=== PATIENT | male | born 1950 | race Caucasian/White ===

== ENCOUNTER 2017-09-14 08:54 | Day surgery (SDC) | payer OTHER ==
[~2017-09-14 08:54] MED LIST: Acetaminophen TAB* 325 MG PO PRN; Buffered Lidocaine 0.9% SYRIN* 5 ML/SYR SYRINGE INTRADERM ONE; Cyclopentolate 1% OPTH.SOL* 2 ML BTL ONE; Ketorolac 0.5% OPHTH (NF) 0.5 % 5 ML BTL ONE; Lidocaine 1% MPF* 2 ML VIAL ONE; Neomycin/Polymy/Dex OPHTH.OIN* 3.5 GM ONE; Phenylephr/Ketorolac 1%/0.3% OPH DROP BTL ONE; Phenylephrine 2.5% OPTH.SOL* 2 ML BTL ONE; Tetracaine 0.5% OPTH.SOL 4 ML* 1 DROP BTL ONE; Tropicamide 1% OPTH.SOL* BTL ONE
[2017-09-14] MEDS ORDERED: Midazolam* 1 MG/ML 2 ML VIAL (2 MG) ONE ×2 (10:19→10:30)
[2017-09-14] MEDS ORDERED: fentaNYL* 50 MCG/ML 2 ML VIAL (100 MCG VIAL) ONE (10:20)
[2017-09-14 10:51] VITALS: BP 113/69
--- NOTE | 2017-09-14 13:23 | OP ---
DATE OF OPERATION/DATE OF DICTATION: 09/14/2017 - [facility] DATE OF : 1950. SURGEON: Dr. Tim Alvarenga. EXPLOSIVES DETONATOR: None. ANESTHESIA: Topical with intravenous sedation. PRE-OP DIAGNOSIS: Cataract, left eye. POST-OP DIAGNOSIS: Cataract, left eye. OPERATIVE PROCEDURE: Phacoemulsification and cataract extraction with posterior chamber intraocular lens implant, left eye. COMPLICATIONS: None. BLOOD LOSS: None. DESCRIPTION OF PROCEDURE: The patient was brought to the operating room and received a small amount of intra-venous sedation. A drop of Tetracaine was placed in his left eye. He was prepped and draped in the usual sterile fashion for ophthalmic surgery and attention was directed to the left eye where a speculum was placed. A paracentesis was created at the 5 o'clock position and 0.1 cc of 1 percent preservative-free Lidocaine was injected into the anterior chamber followed by DisCoVisc. The eye was digitally stabilized while a 2.75 mm keratome was used to create a triplanar clear corneal incision at the 3 o'clock position. A continuous curvilinear capsulorrhexis was created with a cystotome and Utrata forceps. BSS on a cannula was used to hydrodissect the lens from the capsule. Phacoemulsification was performed in a [id number] technique to create four fragments which were removed. Residual cortical material was removed with irrigation and aspiration. DisCoVisc was used to inflate the capsular bag and an AUOOTO 17.0 diopter lens was folded and inserted into the capsular bag. DisCoVisc was removed using irrigation and aspiration. BSS on a cannula was used to hydrate the corneal stroma and seal the wound. At the end of the case the pupil was round and the lens was centered. The eye was of normal pressure and the wound was water tight. The speculum was removed and topical Maxitrol ointment was placed on the surface of the eye. The eye was closed, patched and shielded and the patient was sent to the recovery room in stable condition with post operative instructions and follow-up appointment given. [id number]/CPS #: [id number] MTDD
== END 2017-09-14 11:04 | disposition home or self-care (01) ==
LOC: OREAST 08:54
PROVIDERS: ATTEND Ophthalmology
DX: H25.12 Age-related nuclear cataract, left eye (principal); E03.9 Hypothyroidism, unspecified; J45.909 Unspecified asthma, uncomplicated; E78.00 Pure hypercholesterolemia, unspecified; E78.2 Mixed hyperlipidemia
CPT/HCPCS: A9270-GY; C9447; J2250; J3010; V2632

== ENCOUNTER 2018-02-22 20:26 | Emergency (ER) | payer OTHER ==
--- OUTSIDE RECORDS SUMMARY | 2018-02-22 20:35 | XMS REPORT ---
:1950 External Reference #:[id number] Author Organization [employer] Address [address] [address] Phone [phone] Care Team Providers Name Role Phone Josie Ordaz MD Primary Care Physician Unavailable Payers Type Date Identification Numbers Payment Provider Subscriber Commercial Policy Number: [id number] [employer] Keyanna Chavezsharmaine PayID: [id number] [address] [place] [address] Medigap Part B Expires: 2017 Policy Number: [employer] Hermes Roland [id number] Group Number: [id number] [address] Group Name: [place] [address] PayID: [id number] Problems Date Description Provider Status Onset: 07/10/2010 Hyperlipidemia Josie Ordaz M.D. Active Onset: 11/08/2012 Hypothyroidism Josie Ordaz M.D. Active Onset: 08/31/2017 Mixed hyperlipidemia Jim Mays M.D. 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[employer], retired Cigarette Use Never Smoked Cigarettes ETOH Use Drinks 4 Alcoholic Beverages Per Week Smoking Patient has never smoked Exercise Type/Frequency Walks daily 30 min elliptical and or walking Allergies, Adverse Reactions, Alerts Date Description Reaction Status Severity Comments 06/28/2010 Sulfa intolerant active mild per pt 06/28/2010 Tetracycline active pt stated mild 07/09/2010 Bactrim active pt stated mild Medications Medication Date Status Form Strength Qnty SIG Indications Ordering Provider Levothyroxine Active Tablets 125mcg 90tabs Take 1 Josie Sodium 014 tablet by Cotton, mouth M.D. daily Simvastatin Active Tablets 40mg 90tabs Take 1 E78.5 Josie 011 Tablet By Cotton, Mouth AT M.D. Bedtime Levoxyl Hx Tablets 125mcg 90tabs take 1 Josie 011 - tablet Cotton, daily M.D. 014 Simvastatin Hx Tablets 20mg 90tabs 1 tablet 272.4 Josie 010 - once Cotton, daily at M.D. 011 bedtime Levothyroxine Hx Tablets 125mcg 90tabs 1 by Josie Sodium 010 - mouth Cotton, once M.D. 011 daily Lipitor Hx Tablets 20mg 45tabs 09/07 272.4 Josie 010 - tablet by Cotton, mouth M.D. 010 once daily Levoxyl Hx Tablets 125mcg 90tabs 1 by Josie 010 - mouth Cotton, once M.D. 010 daily [facility] 0000/0 Hx 1 po qd Unknown 000 - 013 Immunizations CPT Code Status Date Vaccine Lot # [id number] Given 06/07/2017 Tetanus And Diptheria (Td) For Adult Use [id number] Preservative Free 86165 Given 06/07/2017 Influenza Virus Vaccine, Quadrivalent, Split, [id number] Preservative Free 82664 Given 06/04/2016 Pneumonia Vaccine [id number] 98404 Given 05/21/2015 Pneumococcal Conjugate Vaccine 13 Valent For [id number] Intramuscular Use 49829 Given 02/26/2012 Zoster (Zostavax) [id number] 78246 Given 07/10/2010 Influenza Virus 3Yrs & Over 08308 Given 06/26/2008 Influenza Virus 3Yrs & Over 09103 Given 06/26/2008 Influenza Virus 3Yrs & Over 42495 Given 03/29/2007 Tdap - Tetanus/Diptheria/Acellular Pertussis 14362 Given 03/29/2007 Tdap - Tetanus/Diptheria/Acellular Pertussis Vital Signs Date Vital Result Comment 02/09/2018 Height 69.75 inches 5'9.75" Weight 195.25 lb Heart Rate 56 /min BP Systolic 119 mmHg BP Diastolic 68 mmHg Body Temperature 96.0 F O2 % BldC Oximetry 98 % BMI (Body Mass Index) 28.2 kg/m2 08/31/2017 Weight 201.25 lb Heart Rate 60 /min BP Systolic Sitting 132 mmHg BP Diastolic Sitting 80 mmHg Body Temperature 95.7 F O2 % BldC Oximetry 98 % 06/07/2017 Height 69.5 inches 5'9.50" Weight 196.50 lb Heart Rate 71 /min BP Systolic 120 mmHg BP Diastolic 66 mmHg Body Temperature 97.5 F O2 % BldC Oximetry 99 % BMI (Body Mass Index) 28.6 kg/m2 06/04/2016 Height 69.5 inches 5'9.50" Weight 183.00 lb Heart Rate 74 /min BP Systolic 119 mmHg BP Diastolic 70 mmHg Body Temperature 98.0 F O2 % BldC Oximetry 98 % BMI (Body Mass Index) 26.6 kg/m2 07/09/2015 Weight 187.50 lb Heart Rate 68 /min BP Systolic Sitting 119 mmHg BP Diastolic Sitting 72 mmHg Body Temperature 97.5 F O2 % BldC Oximetry 98 % 05/21/2015 Height 69.5 inches 5'9.50" Weight 185.00 lb Heart Rate 83 /min BP Systolic Sitting 132 mmHg BP Diastolic Sitting 78 mmHg BMI (Body Mass Index) 26.9 kg/m2 05/15/2014 Height 70.25 inches 5'10.25" Weight 198.00 lb Heart Rate 68 /min BP Systolic Sitting 116 mmHg BP Diastolic Sitting 70 mmHg Body Temperature 97.8 F BMI (Body Mass Index) 28.2 kg/m2 05/09/2013 Height 70.25 inches 5'10.25" Weight 193.25 lb Heart Rate 70 /min BP Systolic Sitting 120 mmHg BP Diastolic Sitting 76 mmHg BMI (Body Mass Index) 27.5 kg/m2 11/08/2012 Height 70.5 inches 5'10.50" Weight 197.00 lb Heart Rate 76 /min BP Systolic Sitting 110 mmHg BP Diastolic Sitting 78 mmHg BMI (Body Mass Index) 27.9 kg/m2 02/26/2012 Height 70 inches 5'10" Weight 195.00 lb Heart Rate 70 /min BP Systolic Sitting 126 mmHg BP Diastolic Sitting 74 mmHg BMI (Body Mass Index) 28.0 kg/m2 02/22/2012 Height 70 inches 5'10" Weight 195.00 lb Heart Rate 72 /min BP Systolic Sitting 128 mmHg BP Diastolic Sitting 74 mmHg BMI (Body Mass Index) 28.0 kg/m2 01/13/2011 Height 70 inches 5'10" Weight 194.75 lb Heart Rate 68 /min BP Systolic 106 mmHg BP Diastolic 68 mmHg BMI (Body Mass Index) 27.9 kg/m2 07/10/2010 Weight 197.50 lb Heart Rate 72 /min BP Systolic 112 mmHg BP Diastolic 68 mmHg Results Test Date Test Result H/L Range Note Lipid Profile (Trig/Chol/HDL) 06/02/2017 Triglycerides 89 mg/dL 1 Cholesterol 167 mg/dL 2 HDL Cholesterol 41.6 mg/dL 3 LDL Cholesterol 108 mg/dL 4 Comp Metabolic Panel 06/02/2017 Sodium 140 mmol/L 133-145 Potassium 4.2 mmol/L 3.5-5.0 Chloride 108 mmol/L 101-111 Co2 Carbon Dioxide 26 mmol/L 22-32 Anion Gap 6 mmol/L 2-11 Glucose 100 mg/dL 70-100 Blood Urea Nitrogen 21 mg/dL 6-24 Creatinine 1.01 mg/dL 0.67-1.17 BUN/Creatinine Ratio 20.8 High 8-20 Calcium 8.9 mg/dL 8.6-10.3 Total Protein 6.6 g/dL 6.4-8.9 Albumin 4.1 g/dL 3.2-5.2 Globulin 2.5 g/dL 2-4 Albumin/Globulin Ratio 1.6 1-3 Total Bilirubin 0.70 mg/dL 0.2-1.0 Alkaline Phosphatase 50 U/L 34-104 Alt 27 U/L 7-52 Ast 25 U/L 13-39 Egfr Non- 73.7 >60 Egfr 94.8 >60 5 Laboratory test finding 06/02/2017 TSH (Thyroid Stim Horm) 1.00 mcIU/mL 0.34-5.60 6 PSA Screening 0.631 ng/mL 0-4.000 7 Lipid Profile (Trig/Chol/HDL) 05/28/2016 Triglycerides 133 mg/dL 8 Cholesterol 172 mg/dL 9 HDL Cholesterol 39.3 mg/dL 10 LDL Cholesterol 106 mg/dL 11 Comp Metabolic Panel 05/28/2016 Sodium 139 mmol/L 133-145 Potassium 4.2 mmol/L 3.5-5.0 Chloride 103 mmol/L 101-111 Co2 Carbon Dioxide 30 mmol/L 22-32 Anion Gap 6 mmol/L 2-11 Glucose 90 mg/dL 70-100 Blood Urea Nitrogen 21 mg/dL 6-24 Creatinine 1.06 mg/dL 0.67-1.17 BUN/Creatinine Ratio 19.8 8-20 Calcium 9.4 mg/dL 8.6-10.3 Total Protein 6.7 g/dL 6.4-8.9 Albumin 4.2 g/dL 3.2-5.2 Globulin 2.5 g/dL 2-4 Albumin/Globulin Ratio 1.7 1-3 Total Bilirubin 0.90 mg/dL 0.2-1.0 Alkaline Phosphatase 57 U/L 34-104 Alt 19 U/L 7-52 Ast 21 U/L 13-39 Egfr Non- 69.9 >60 Egfr 89.9 >60 12 Laboratory test finding 05/28/2016 TSH (Thyroid Stim Horm) 0.66 mcIU/mL 0.34-5.60 PSA Screening 0.616 ng/mL 0-4.0 Lipid Profile (Trig/Chol/HDL) 05/16/2015 Triglycerides 126 mg/dL 13 Cholesterol 188 mg/dL 14 HDL Cholesterol 44.4 mg/dL 15 LDL Cholesterol 118 mg/dL 16 Laboratory test finding 05/16/2015 TSH (Thyroid Stim Horm) 1.94 ?IU/mL 0.34-5.60 Comp Metabolic Panel 05/16/2015 Sodium 139 mmol/L 133-145 Potassium 4.1 mmol/L 3.5-5.0 Chloride 105 mmol/L 101-111 Co2 Carbon Dioxide 26 mmol/L 22-32 Anion Gap 8 mmol/L 2-11 Glucose 101 mg/dL High 70-100 Blood Urea Nitrogen 18 mg/dL 6-24 Creatinine 1.09 mg/dL 0.67-1.17 BUN/Creatinine Ratio 16.5 8-20 Calcium 9.3 mg/dL 8.6-10.3 Total Protein 6.7 g/dL 6.4-8.9 Albumin 4.4 g/dL 3.2-5.2 Globulin 2.3 g/dL 2-4 Albumin/Globulin Ratio 1.9 1-3 Total Bilirubin 0.70 mg/dL 0.2-1.0 Alkaline Phosphatase 55 U/L 34-104 Alt 21 U/L 7-52 Ast 21 U/L 13-39 Egfr Non- 67.9 >60 Egfr 87.3 >60 17 Laboratory test finding 05/16/2015 PSA Diagnostic 0.630 ng/mL 0-4.0 Laboratory test finding 05/29/2014 PSA Diagnostic 0.867 ng/mL 0-4.0 18 Creatinine 05/29/2014 Creatinine 1.11 mg/dL 0.67-1.17 Egfr Non- 66.7 >60 Egfr 85.8 >60 19 Laboratory test finding 05/29/2014 Blood Urea Nitrogen 22 mg/dL 6-24 Lipid Profile (Trig/Chol/HDL) 05/15/2014 Triglycerides 236 mg/dL 20, 21 Cholesterol 191 mg/dL 20, 22 HDL Cholesterol 36.9 mg/dL 20, 23 LDL Cholesterol 107 mg/dL 20, 24 Comp Metabolic Panel 05/15/2014 Sodium 138 mmol/L 133-145 20 Potassium 4.1 mmol/L 3.5-5.0 20 Chloride 103 mmol/L 101-111 20 Co2 Carbon Dioxide 31 mmol/L 22-32 20 Anion Gap 4 mmol/L 2-11 20 Glucose 89 mg/dL 70-100 20 Blood Urea Nitrogen 15 mg/dL 6-24 20 Creatinine 1.07 mg/dL 0.67-1.17 20 BUN/Creatinine Ratio 14.0 8-20 20 Calcium 9.3 mg/dL 8.6-10.3 20 Total Protein 6.6 g/dL 6.4-8.9 20 Albumin 4.3 g/dL 3.2-5.2 20 Globulin 2.3 g/dL 2-4 20 Albumin/Globulin Ratio 1.9 1-3 20 Total Bilirubin 0.80 mg/dL 0.2-1.0 20 Alkaline Phosphatase 58 U/L 34-104 20 Alt 18 U/L 7-52 20 Ast 19 U/L 13-39 20 Egfr Non- 69.6 >60 20 Egfr 89.5 >60 20, 25 Laboratory test 05/15/2014 TSH (Thyroid 1.68 IU/mL 0.34-5.60 20, 26 finding Stimulating Horm) Laboratory test 01/11/2014 TSH (Thyroid 0.67 IU/mL 0.34-5.60 27, 28 finding Stimulating Horm) Lipid Profile 01/11/2014 Triglycerides 140 mg/dL 27, 29 (Trig/Chol/HDL) Cholesterol 179 mg/dL 27, 30 HDL Cholesterol 37.6 mg/dL 27, 31 LDL Cholesterol 113 mg/dL 27, 32 Comp Metabolic Panel 01/11/2014 Sodium 139 mmol/L 133-145 27 Potassium 4.7 mmol/L 3.7-5.6 27 Chloride 103 mmol/L 101-111 27 Co2 Carbon Dioxide 31 mmol/L 22-32 27 Anion Gap 5 mmol/L 2-11 27 Glucose 89 mg/dL 70-100 27 Blood Urea Nitrogen 21 mg/dL 6-24 27 Creatinine 1.11 mg/dL 0.67-1.17 27 BUN/Creatinine Ratio 18.9 8-20 27 Calcium 9.3 mg/dL 8.6-10.3 27 Total Protein 6.9 g/dL 6.4-8.9 27 Albumin 4.6 g/dL 3.2-5.2 27 Globulin 2.3 g/dL 2-4 27 Albumin/Globulin Ratio 2.0 1-3 27 Total Bilirubin 0.60 mg/dL 0.2-1.0 27 Alkaline Phosphatase 69 U/L 34-104 27 Alt 25 U/L 7-52 27 Ast 20 U/L 13-39 27 Egfr Non- 66.9 >60 27 Egfr 86.0 >60 27, 33 Laboratory test 01/11/2014 Hepatitis C Nonreactive Nonreactive 27, 34 finding Antibody Comp Metabolic Panel 11/09/2012 Sodium 140 mmol/L 133-145 Potassium 4.3 mmol/L 3.5-5.0 Chloride 104 mmol/L 101-111 Co2 Carbon Dioxide 29.0 mmol/L 22-32 Anion Gap 7.0 mmol/L 2-11 Glucose 88 mg/dL 70-100 Blood Urea Nitrogen 17 mg/dL 6-24 Creatinine 1.20 mg/dL 0.50-1.40 BUN/Creatinine Ratio 14.2 8-20 Calcium 9.2 mg/dL 8.1-9.9 Total Protein 6.5 g/dL 6.2-8.1 Albumin 4.1 g/dL 3.2-5.2 Globulin 2.4 g/dL 2-4 Albumin/Globulin Ratio 1.7 1-3 Total Bilirubin 1.0 mg/dL 0.4-1.5 Alkaline Phosphatase 64 U/L 30-110 Alt 26 U/L 14-54 Ast 23 U/L 12-42 Egfr Non- 61.3 >60 Egfr 78.9 >60 35 Lipid Profile (Trig/Chol/HDL) 11/09/2012 Triglycerides 150 mg/dL 40-200 Cholesterol 195 mg/dL Less than 200 HDL Cholesterol 39 mg/dL Low 40-60 36 Cholesterol/HDL Ratio 5.0 Average High 1-4.44 LDL Cholesterol 126.0 mg/dL High Less Than 100 37 Laboratory test finding 11/09/2012 TSH (Thyroid Stimulating 2.24 miu/mL 0.34-5.60 38 Horm) Urinalysis 04/21/2012 Ua Color YELLOW Yellow Appearance-Urine CLEAR Clear Specific [place]-Ur 1.020 1.010-1.030 Esterase-Urine NEGATIVE Negative Nitrite NEGATIVE Negative [id number] NEGATIVE Negative Protein-Urine NEGATIVE Negative PH-Urine 5.0 5-9 Blood-Urine NEGATIVE Negative Ketones-Urine NEGATIVE Negative Bilirubin-Ur NEGATIVE Negative Glucose-Urine NEGATIVE Negative Urine Culture & 02/26/2012 M <SEE 39 Sensitivi NOTE> Laboratory test finding 02/22/2012 TSH 0.94 MIU/ML 0.34-5.60 CMP Panel 02/22/2012 Sodium 137 mmol/L 135-145 Potassium 4.2 mmol/L 3.5-5.0 Chloride 105 mmol/L 101-111 Co2 (Carbon Dioxide) 29.0 mmol/L 22-32 Anion Gap 3.0 mmol/L 2-11 40 Glucose 100 mg/dL 70-100 BUN 18 mg/dL 6-24 Creatinine 1.1 mg/dL 0.50-1.40 One Over Creatinine 0.90 BUN/Creatinine Ratio 16.4 8-20 Calcium 9.2 mg/dL 8.1-9.9 Total Protein 6.8 GM/DL 6.2-8.1 Albumin 4.1 GM/DL 3.2-5.2 Globulin 2.7 GM/DL 2-4 Albumin/Globulin Ratio 1.5 1-3 Bilirubin Total 1.1 mg/dL 0.4-1.5 41 Alkaline Phosphatase 52 U/L 39-117 Alt (SGPT) 24 U/L 17-63 Ast (Sgot) 24 U/L 12-42 eGFR Non- 68.1 > 60 eGFR 87.5 > 60 42 Lipid Panel 02/22/2012 Triglyceride 171 mg/dL 40-200 Cholesterol 176 mg/dL Less Than 200 43 High Density Lipoprotein 47 mg/dL 40-60 44 Cholesterol/HDL Ratio 3.74 AVERAGE 1-4.97 Low Density Lipoprotein 95 mg/dL Less Than 100 45 Laboratory test finding 05/05/2011 Alt (SGPT) 36 U/L 17-63 Ast (Sgot) 29 U/L 12-42 TSH 1.87 MIU/ML 0.34-5.60 Varicella Zoster Igg Negative Negative 46 Lipid Profile (Trig/Chol/HDL) 05/05/2011 Triglyceride 157 mg/dL 40-200 Cholesterol 222 mg/dL High Less Than 200 47 High Density Lipoprotein 43 mg/dL 40-60 48 Cholesterol/HDL Ratio 5.16 AVERAGE High 1-4.97 Low Density Lipoprotein 148 mg/dL High Less Than 100 49 Lipid Profile (Trig/Chol/HDL) 01/06/2011 Triglyceride 185 mg/dL 40-200 Cholesterol 206 mg/dL High Less Than 200 50 High Density Lipoprotein 41 mg/dL 40-60 51 Cholesterol/HDL Ratio 5.02 AVERAGE High 1-4.97 Low Density Lipoprotein 128 mg/dL High Less Than 100 52 Laboratory test finding 01/06/2011 Alt (SGPT) 32 U/L 17-63 Ast (Sgot) 26 U/L 12-42 PSA Screening 0.48 NG/ML 0-4 53 Comp Metabolic Panel 06/26/2010 Sodium 132 mmol/L Low 135-145 Potassium 4.1 mmol/L 3.5-5.0 Chloride 99 mmol/L Low 101-111 Co2 (Carbon Dioxide) 29.0 mmol/L 22-32 Anion Gap 4.0 mmol/L 2-11 54 Glucose 91 mg/dL 70-100 55 BUN 18 mg/dL 6-24 Creatinine 0.90 mg/dL 0.50-1.40 One Over Creatinine 1.10 BUN/Creatinine Ratio 20.0 8-20 Calcium 8.9 mg/dL 8.1-9.9 Total Protein 7.0 GM/DL 6.2-8.1 Albumin 4.3 GM/DL 3.2-5.2 Globulin 2.7 GM/DL 2-4 Albumin/Globulin Ratio 1.6 1-3 Bilirubin Total 1.0 mg/dL 0.4-1.5 56 Alkaline Phosphatase 59 U/L 39-117 Alt (SGPT) 35 U/L 17-63 Ast (Sgot) 31 U/L 12-42 eGFR Non- 91.5 > 60 eGFR 110.7 > 60 57 Lipid Profile (Trig/Chol/HDL) 06/26/2010 Triglyceride 236 mg/dL High 40- 200 Cholesterol 207 mg/dL High Less Than 200 58 High Density Lipoprotein 39 mg/dL Low 40-60 59 Cholesterol/HDL Ratio 5.31 AVERAGE High 1-4.97 Low Density Lipoprotein 121 mg/dL High Less Than 100 60 Laboratory test finding 06/26/2010 TSH 0.67 MIU/ML 0.34-5.60 1 Desirable <150 Borderline high 150-199 High 200-499 Very High >500 2 Desirable <200 Borderline high 200-239 High >239 3 Low <40 Desirable: 40-60 High: >60 4 Desirable: <100 mg/dL Near Optimal: 100-129 mg/dL Borderline High: 130-159 mg/dL High: 160-189 mg/dL Very High: >189 mg/dL 5 Because ethnic data is not always readily available, this report includes an eGFR for both -Americans and non- Americans. The National Kidney Disease Education Program (NKDEP) does not endorse the use of the MDRD equation for patients that are not between the ages of 18 and 70, are , have extremes of body size, muscle mass, or nutritional status, or are non- or non-. According to the National Kidney Foundation, irrespective of diagnosis, the stage of the disease is based on the level of kidney function: Stage Description GFR(mL/min/1.73 m(2)) 1 Kidney damage with normal or decreased GFR 90 2 Kidney damage with mild decrease in GFR 60-89 3 Moderate decrease in GFR 30-59 4 Severe decrease in GFR 15-29 5 Kidney failure <15 (or dialysis) 6 FASTING 10 HOUR 7 FASTING 10 HOUR 8 Desirable <150 Borderline high 150-199 High 200-499 Very High >500 9 Desirable <200 Borderline high 200-239 High >239 10 Low <40 Desirable: 40-60 High: >60 11 Desirable: <100 mg/dL Near Optimal: 100-129 mg/dL Borderline High: 130-159 mg/dL High: 160-189 mg/dL Very High: >189 mg/dL 12 Because ethnic data is not always readily available, this report includes an eGFR for both -Americans and non- Americans. The National Kidney Disease Education Program (NKDEP) does not endorse the use of the MDRD equation for patients that are not between the ages of 18 and 70, are , have extremes of body size, muscle mass, or nutritional status, or are non- or non-. According to the National Kidney Foundation, irrespective of diagnosis, the stage of the disease is based on the level of kidney function: Stage Description GFR(mL/min/1.73 m(2)) 1 Kidney damage with normal or decreased GFR 90 2 Kidney damage with mild decrease in GFR 60-89 3 Moderate decrease in GFR 30-59 4 Severe decrease in GFR 15-29 5 Kidney failure <15 (or dialysis) 13 Desirable <150 Borderline high 150-199 High 200-499 Very High >500 14 Desirable <200 Borderline high 200-239 High >239 15 Low <40 Desirable: 40-60 High: >60 16 Desirable: <100 mg/dL Near Optimal: 100-129 mg/dL Borderline High: 130-159 mg/dL High: 160-189 mg/dL Very High: >189 mg/dL 17 Because ethnic data is not always readily available, this report includes an eGFR for both -Americans and non- Americans. The National Kidney Disease Education Program (NKDEP) does not endorse the use of the MDRD equation for patients that are not between the ages of 18 and 70, are , have extremes of body size, muscle mass, or nutritional status, or are non- or non-. According to the National Kidney Foundation, irrespective of diagnosis, the stage of the disease is based on the level of kidney function: Stage Description GFR(mL/min/1.73 m(2)) 1 Kidney damage with normal or decreased GFR 90 2 Kidney damage with mild decrease in GFR 60-89 3 Moderate decrease in GFR 30-59 4 Severe decrease in GFR 15-29 5 Kidney failure <15 (or dialysis) 18 Serum levels of PSA measured using the [employer] DXI Hybritech immunoassay should not be interpreted as absolute evidence of the presence or absence of disease. The PSA value should be used in conjunction with other pertinent clinical diagnostic procedures. The values obtained with different assay methods or kits cannot be used interchangeably. 19 Because ethnic data is not always readily available, this report includes an eGFR for both -Americans and non- Americans. The National Kidney Disease Education Program (NKDEP) does not endorse the use of the MDRD equation for patients that are not between the ages of 18 and 70, are , have extremes of body size, muscle mass, or nutritional status, or are non- or non-. According to the National Kidney Foundation, irrespective of diagnosis, the stage of the disease is based on the level of kidney function: Stage Description GFR(mL/min/1.73 m(2)) 1 Kidney damage with normal or decreased GFR 90 2 Kidney damage with mild decrease in GFR 60-89 3 Moderate decrease in GFR 30-59 4 Severe decrease in GFR 15-29 5 Kidney failure <15 (or dialysis) 20 PT IS FASTING 21 Desirable <150 Borderline high 150-199 High 200-499 Very High >500 22 Desirable <200 Borderline high 200-239 High >239 23 Low <40 Desirable: 40-60 High: >60 24 Desirable: <100 mg/dL Near Optimal: 100-129 mg/dL Borderline High: 130-159 mg/dL High: 160-189 mg/dL Very High: >189 mg/dL 25 Because ethnic data is not always readily available, this report includes an eGFR for both -Americans and non- Americans. The National Kidney Disease Education Program (NKDEP) does not endorse the use of the MDRD equation for patients that are not between the ages of 18 and 70, are , have extremes of body size, muscle mass, or nutritional status, or are non- or non-. According to the National Kidney Foundation, irrespective of diagnosis, the stage of the disease is based on the level of kidney function: Stage Description GFR(mL/min/1.73 m(2)) 1 Kidney damage with normal or decreased GFR 90 2 Kidney damage with mild decrease in GFR 60-89 3 Moderate decrease in GFR 30-59 4 Severe decrease in GFR 15-29 5 Kidney failure <15 (or dialysis) 26 PT IS FASTING 27 FASTING 12 HOUR 28 FASTING 12 HOUR 29 Desirable <150 Borderline high 150-199 High 200-499 Very High >500 30 Desirable <200 Borderline high 200-239 High >239 31 Low <40 Desirable: 40-60 High: >60 32 Desirable <100 Near Optimal 100-129 Borderline high 130-159 High 160-189 Very High >189 33 Because ethnic data is not always readily available, this report includes an eGFR for both -Americans and non- Americans. The National Kidney Disease Education Program (NKDEP) does not endorse the use of the MDRD equation for patients that are not between the ages of 18 and 70, are , have extremes of body size, muscle mass, or nutritional status, or are non- or non-. According to the National Kidney Foundation, irrespective of diagnosis, the stage of the disease is based on the level of kidney function: Stage Description GFR(mL/min/1.73 m(2)) 1 Kidney damage with normal or decreased GFR 90 2 Kidney damage with mild decrease in GFR 60-89 3 Moderate decrease in GFR 30-59 4 Severe decrease in GFR 15-29 5 Kidney failure <15 (or dialysis) 34 FASTING 12 HOUR 35 Because ethnic data is not always readily available, this report includes an eGFR for both -Americans and non- Americans. The National Kidney Disease Education Program (NKDEP) does not endorse the use of the MDRD equation for patients that are not between the ages of 18 and 70, are , have extremes of body size, muscle mass, or nutritional status, or are non- or non-. According to the National Kidney Foundation, irrespective of diagnosis, the stage of the disease is based on the level of kidney function: Stage Description GFR(mL/min/1.73 m(2)) 1 Kidney damage with normal or decreased GFR 90 2 Kidney damage with mild decrease in GFR 60-89 3 Moderate decrease in GFR 30-59 4 Severe decrease in GFR 15-29 5 Kidney failure <15 (or dialysis) 36 HDL Interpretation: Undesirable: High Risk: Less than 40 MG/DL Desirable: Low Risk: Greater than 60 MG/DL 37 LDL Interpretation: Low Risk Optimal Level: LDL Less than 100 MG/DL Near or Above Optimal: LDL 100-129 MG/DL Borderline High Risk: LDL 130-159 MG/DL High Risk: LDL 160-189 MG/DL Very High Risk: LDL Greater than 189 MG/DL 38 FASTING 12 HOUR 39 RUN DATE: 02/28/12 [facility] NMI LIVE PAGE 1 RUN TIME: 850 Specimen Inquiry RUN USER: INTERFACE Name: HERMES ROLAND Status: REG REF Re02/26/12 Age/Sex: 61/M Unit#: [id number] Location: [facility] : 50 SPEC #: [id number] JOSUE: 02/26/12 STATUS: LETICIA REQ #: [id number] RECD: 02/26/[address] [facility] [address]: Orlin CHRIS,Josie Aguilar SOURCE: URINE ENTR: 02/26/[address]: [facility]: ORDERED: URINE C S QUERIES: MEDENT REQUISITION # [id number] SPECIMEN DESCRIPTION: URINE, CLEAN CATCH ACT WKST: UR 02/28/12 #1 Procedure Result Verified Site > URINE CULTURE SENSITIVI Final -0851 ML FINAL: NO GROWTH DAY 2 (<1,000 CFU/mL) ML - [facility] State Permit #[id number] [address] [place] [id number] DEPARTMENT OF PATHOLOGY, [address] [place] [address] [facility] Permit #[id number] Martinez Dejesus M.D. Director Miguel Skelton M.D. [employer] 40 Anion gap measurement may be of limited value in the presence of any alkalosis, especially in a combined acid base disorder. . 41 A metabolite of Naproxen, O-desmethylnaproxen, has been shown to interfere with the Jendrassik-Marla method for measuring total bilirubin. Samples from patients who have taken Naproxen have shown spurious elevation in total bilirubin levels. 42 Because ethnic data is not always readily available, this report includes an eGFR for both -Americans and non- Americans. The National Kidney Disease Education Program (NKDEP) does not endorse the use of the MDRD equation for patients that are not between the ages of 18 and 70, are , have extremes of body size, muscle mass, or nutritional status, or are non- or non-. According to the National Kidney Foundation, irrespective of diagnosis, the stage of the disease is based on the level of kidney function: Stage Description GFR(mL/min/1.73 m(2)) 1 Kidney damage with normal or decreased GFR 90 2 Kidney damage with mild decrease in GFR 60-89 3 Moderate decrease in GFR 30-59 4 Severe decrease in GFR 15-29 5 Kidney failure <15 (or dialysis) 43 CHOLESTEROL INTERPRETATION: Desirable: Less than 200 MG/DL Borderline-High Risk: 200-239 MG/DL High-Risk: 240 MG/DL and over 44 HDL INTERPRETATION: Undesirable: High Risk: Less than 40 MG/DL Desirable: Low Risk: Greater than 60 MG/DL 45 LDL INTERPRETATION: Low Risk Optimal Level: LDL Less than 100 MG/DL Near or Above Optimal: LDL 100-129 MG/DL Borderline High Risk: LDL 130-159 MG/DL High Risk: LDL 160-189 MG/DL Very High Risk: LDL Greater than 189 MG/DL 46 Indicates non-immunity Test Performed by: [facility] [address] [place], [place] [address] Case Management Associate: Pancho Love III, M.D. 47 CHOLESTEROL INTERPRETATION: Desirable: Less than 200 MG/DL Borderline-High Risk: 200-239 MG/DL High-Risk: 240 MG/DL and over 48 HDL INTERPRETATION: Undesirable: High Risk: Less than 40 MG/DL Desirable: Low Risk: Greater than 60 MG/DL 49 LDL INTERPRETATION: Low Risk Optimal Level: LDL Less than 100 MG/DL Near or Above Optimal: LDL 100-129 MG/DL Borderline High Risk: LDL 130-159 MG/DL High Risk: LDL 160-189 MG/DL Very High Risk: LDL Greater than 189 MG/DL 50 CHOLESTEROL INTERPRETATION: Desirable: Less than 200 MG/DL Borderline-High Risk: 200-239 MG/DL High-Risk: 240 MG/DL and over 51 HDL INTERPRETATION: Undesirable: High Risk: Less than 40 MG/DL Desirable: Low Risk: Greater than 60 MG/DL 52 LDL INTERPRETATION: Low Risk Optimal Level: LDL Less than 100 MG/DL Near or Above Optimal: LDL 100-129 MG/DL Borderline High Risk: LDL 130-159 MG/DL High Risk: LDL 160-189 MG/DL Very High Risk: LDL Greater than 189 MG/DL 53 * SERUM LEVELS OF PSA MEASURED USING THE ALVIN Bizpora ACCESS HYBRITECH IMMUNOASSAY SHOULD NOT BE INTERPRETED ABSOLUTE EVIDENCE OF THE PRESENCE OR ABSENCE OF DISEASE. THE PSA VALUE SHOULD BE USED IN CONJUNCTION WITH OTHER PERTINENT CLINICAL DIAGNOSTIC PROCEDURES. A PSA value in the range of 0.1 to 0.6 ng/ml is indeterminate if being used as an indicator of recurrent or residual disease. . 54 Anion gap measurement may be of limited value in the presence of any alkalosis, especially in a combined acid base disorder. . 55 Note change in reference range as of 04/26/08. The change was based on recommendations from the [place] [employer]. 56 A metabolite of Naproxen, O-desmethylnaproxen, has been shown to interfere with the Jendrassik-Marla method for measuring total bilirubin. Samples from patients who have taken Naproxen have shown spurious elevation in total bilirubin levels. 57 Because ethnic data is not always readily available, this report includes an eGFR for both -Americans and non- Americans. The National Kidney Disease Education Program (NKDEP) does not endorse the use of the MDRD equation for patients that are not between the ages of 18 and 70, are , have extremes of body size, muscle mass, or nutritional status, or are non- or non-. According to the National Kidney Foundation, irrespective of diagnosis, the stage of the disease is based on the level of kidney function: Stage Description GFR(mL/min/1.73 m(2)) 1 Kidney damage with normal or decreased GFR 90 2 Kidney damage with mild decrease in GFR 60-89 3 Moderate decrease in GFR 30-59 4 Severe decrease in GFR 15-29 5 Kidney failure <15 (or dialysis) 58 CHOLESTEROL INTERPRETATION: Desirable: Less than 200 MG/DL Borderline-High Risk: 200-239 MG/DL High-Risk: 240 MG/DL and over 59 HDL INTERPRETATION: Undesirable: High Risk: Less than 40 MG/DL Desirable: Low Risk: Greater than 60 MG/DL 60 LDL INTERPRETATION: Low Risk Optimal Level: LDL Less than 100 MG/DL Near or Above Optimal: LDL 100-129 MG/DL Borderline High Risk: LDL 130-159 MG/DL High Risk: LDL 160-189 MG/DL Very High Risk: LDL Greater than 189 MG/DL Procedures Date CPT Code Description Status 06/07/2017 86037 Admin & Interp Of Health Risk Assessment w/ Patient Completed 09/11/2015 Colonoscopy Completed 11/08/2012 98254 EKG Tracing & Interpretation Completed 06/26/2008 93456 EKG Tracing & Interpretation Completed 04/19/2002 Colonoscopy Completed Encounters Type Date Location Provider CPT E/M Dx Office Visit 08/31/2017 [facility] Jim Mays, [address]92 Z01.818 9:40a Medicine - [address] Tanika H26.9 E78.2 E03.9 Office Visit 06/07/2017 9:20a [facility] Medicine Josie Ordaz 69444 Z00.00 - [place] M.D. Z23 Office Visit 06/04/2016 9:20a [facility] Josie Ordaz 50438 Z00.00 - [place] MTeodora E78.2 D48.5 Office Visit 07/09/2015 9:40a [facility] Josie Ordaz 92116 D17.1 - [place] MTeodora R22.2 Office Visit 05/21/2015 9:00a [facility] Josie Ordaz 97671 V70.0 - [place] M.DZuleyma 244.9 272.2 V76.51 214.1 V03.82 Office Visit 05/15/2014 10:20a [facility] Josie Ordaz 22461 V70.0 - [place] M.DZuleyma V76.51 272.2 244.9 602.8 Office Visit 05/09/2013 10:20a [facility] Josie Ordaz 84912 V70.0 - [place] M.DZuleyma V76.51 V76.44 244.9 272.2 369.75 529.9 Office Visit 11/08/2012 1:40p [facility] Josie Ordaz 91227 V72.84 - [place] M.DZuleyma 272.4 244.9 840.4 Office Visit 02/26/2012 2:00p [facility] Josie Ordaz 37461 V70.0 - [place] M.D. 272.4 599.70 v04.89 840.9 244.9 Office Visit 02/22/2012 3:20p [facility] Josie Ordaz 57334 729.5 - [place] M.D. Office Visit 01/13/2011 9:00a DO Not Use Josie Ordaz 17974 V70.0 Melina-[place] M.DZuleyma 729.5 272.4 Office Visit 07/10/2010 10:00a DO Not Use Josie Ordaz, 17982 272.4 [facility].Rivka V04.81 Office Visit 03/14/2009 1:45p DO Not Use RadBharti harrington, 48450 381.81 [facility].Rivka 477.9 Office Visit 06/26/2008 2:15p DO Not Use RadBharti harrington, 66925 V70.0 Kody Mai.Rivka 272.4 V04.81 Office Visit 03/29/2007 1:30p DO Not Use RadBharti harrington, 01410 V70.0 [facility].Rivka V06.1 Plan of Care Future Appointment(s):06/09/2018 9:20 am - oJsie Ordaz M.D. at [facility] Medicine - Xlnictbvj55/06/2018 - Manjit Owen, NPK40.90 Unil inguinal hernia, w/o obst or gangr, not spcf as recurComments:I am referring you to a surgeon for further evaluation.If you develop pain in the area, discoloration, or vomiting you should go to the hospital.Avoid heavy lifting for the time being.Referral:Biju Beach MD, Surgery,GeneralFollow up:prn
--- OUTSIDE RECORDS SUMMARY | 2018-02-22 20:35 | XMS REPORT ---
:1950 External Reference #:[id number] Author Organization [facility] Address [address] [place] [address] [place] [address] Phone [phone] Care Team Providers Name Role Phone Josie Ordaz MD Primary Care Physician Unavailable Payers Type Date Identification Numbers Payment Provider Subscriber Commercial Policy Number: [id number] [employer] Keyanna Duff PayID: [id number] [address] [place] [address] Medigap Part B Expires: 2017 Policy Number: [employer] Insurance Hermes Cox [id number] Group Number: [id number] [address] Group Name: [place] [address] PayID: [id number] Problems Date Description Provider Status Onset: 07/10/2010 [...] 011 daily Lipitor Hx Tablets 20mg 45tabs / 272.4 Josie 010 - tablet by Cotton, mouth M.D. 010 once daily Levoxyl Hx Tablets 125mcg 90tabs 1 by Josie 010 - mouth Cotton, once M.D. 010 daily [facility] 0000/0 Hx 1 po qd Unknown 000 - 013 Immunizations CPT Code Status Date Vaccine Lot # [id number] Given 06/07/2017 Tetanus And Diptheria (Td) For Adult Use [id number] Preservative Free 22741 Given 06/07/2017 Influenza Virus Vaccine, Quadrivalent, Split, [id number] Preservative Free 63592 Given 06/04/2016 Pneumonia Vaccine [id number] 51314 Given 05/21/2015 Pneumococcal Conjugate Vaccine 13 Valent For [id number] Intramuscular Use 34097 Given 02/26/2012 Zoster (Zostavax) [id number] 28552 Given 07/10/2010 Influenza Virus 3Yrs & Over 25989 Given 06/26/2008 Influenza Virus 3Yrs & Over 26181 Given 06/26/2008 Influenza Virus 3Yrs & Over 19618 Given 03/29/2007 Tdap - Tetanus/Diptheria/Acellular Pertussis 70065 Given 03/29/2007 Tdap - Tetanus/Diptheria/Acellular Pertussis Vital Signs Date Vital Result Comment 02/15/2018 Heart Rate 54 /min BP Systolic Sitting 104 mmHg BP Diastolic Sitting 70 mmHg Respiratory Rate 18 /min Body Temperature 98.0 F 02/09/2018 Height 69.75 inches 5'9.75" Weight 195.25 [...] Color YELLOW Yellow Appearance-Urine CLEAR Clear Specific [place]-Ur 1.020 1.010-1.030 Esterase-Urine NEGATIVE Negative Nitrite NEGATIVE Negative Yupuovxahinr-Ts-VXU NEGATIVE Negative Protein-Urine NEGATIVE Negative PH-Urine 5.0 [...] Serum levels of PSA measured using the [employer] DXI Hybritech immunoassay should not be interpreted [...] FASTING 12 HOUR 39 RUN DATE: 02/28/12 [facility] NMI LIVE PAGE 1 RUN TIME: 850 Specimen Inquiry RUN USER: INTERFACE Name: HERMES COX Status: REG REF Re02/26/12 Age/Sex: 61/M Unit#: [id number] Location: [facility] : 50 SPEC #: [id number] JOSUE: 02/26/12 STATUS: COMP REQ #: [id number] RECD: 02/26/[address] [facility] [address]: Orlin CHRIS,Josie Aguilar SOURCE: URINE ENTR: 02/26/[address]: URINE C S QUERIES: MEDENT REQUISITION # [id number] SPECIMEN DESCRIPTION: URINE, CLEAN CATCH ACT WKST: UR 02/28/12 #1 Procedure Result Verified Site > URINE CULTURE SENSITIVI Final -0851 ML FINAL: NO GROWTH DAY 2 (<1,000 CFU/mL) ML - [facility] State Permit #[id number] [address] [place] [address] DEPARTMENT OF PATHOLOGY, [facility] DATES [place], [place] [address] [facility] Permit #[id number] Martinez Dejesus M.D. Director Miguel Skelton M.D. Dentist 40 Anion gap measurement may be of limited value in the presence of any alkalosis, especially in a combined acid base disorder. . 41 A metabolite of Naproxen, O-desmethylnaproxen, has been shown to interfere with the Jendrassik-[place] method for measuring total bilirubin. Samples from [...] MG/DL 46 Indicates non-immunity Test Performed by: [facility] Pathology [address] [place] [address] Index Clerk: Pancho Love III, M.D. 47 CHOLESTEROL INTERPRETATION: [...] SERUM LEVELS OF PSA MEASURED USING THE [employer] ACCESS HYBRITECH IMMUNOASSAY SHOULD NOT BE INTERPRETED [...] change was based on recommendations from the [place] Diabetes [employer]. 56 A metabolite of Naproxen, [...] Procedures Date CPT Code Description Status 06/07/2017 34940 Admin & Interp Of Health Risk Assessment w/ Patient Completed 09/11/2015 Colonoscopy Completed 11/08/2012 86078 EKG Tracing & Interpretation Completed 06/26/2008 25443 EKG Tracing & Interpretation Completed 04/19/2002 Colonoscopy Completed Encounters Type Date Location Provider CPT E/M Dx Office Visit 02/09/2018 [facility] [place] [address] K40.90 11:20a - [place] Office Visit 08/31/2017 [facility] Jim Mays, 13908 Z01.818 9:40a - [address] M.DZuleyma H26.9 E78.2 E03.9 Office Visit 06/07/2017 9:20a [facility] Josie Ordaz 37663 Z00.00 - [place] MTeodora Z23 Office Visit 06/04/2016 9:20a [facility] Josie Ordaz 95001 Z00.00 - [place] MTeodora E78.2 D48.5 Office Visit 07/09/2015 9:40a [facility] Josie Ordaz 74668 D17.1 - [place] Tanika R22.2 Office Visit 05/21/2015 9:00a [facility] Josie Ordaz 78584 V70.0 - [place] M.D. 244.9 272.2 V76.51 214.1 V03.82 Office Visit 05/15/2014 10:20a [facility] Josie Ordaz 07044 V70.0 - [place] M.DZuleyma V76.51 272.2 244.9 602.8 Office Visit 05/09/2013 10:20a [facility] Josie Ordaz 17211 V70.0 - [place] M.DZuleyma V76.51 V76.44 244.9 272.2 369.75 529.9 Office Visit 11/08/2012 1:40p [facility] Josie Ordaz 42140 V72.84 - [place] M.D. 272.4 244.9 840.4 Office Visit 02/26/2012 2:00p [facility] Josie Ordaz 69028 V70.0 - [place] M.D. 272.4 599.70 v04.89 840.9 244.9 Office Visit 02/22/2012 3:20p [facility] Josie Ordaz 15320 729.5 - [place] M.D. Office Visit 01/13/2011 9:00a DO Not Use Josie Cotton, 17719 V70.0 [facility]-[place] M.D. 729.5 272.4 Office Visit 07/10/2010 10:00a DO Not Use Josie Cotton, 47415 272.4 [facility] M.D. V04.81 Office Visit 03/14/2009 1:45p DO Not Use RadBharti harrington, 27321 381.81 [facility] M.D. 477.9 Office Visit 06/26/2008 2:15p DO Not Use RadBharti harrington, 79561 V70.0 [facility] M.D. 272.4 V04.81 Office Visit 03/29/2007 1:30p DO Not Use RadBharti harrington, 87699 V70.0 [facility] M.D. V06.1 Plan of Care Future Appointment(s):05/13/2018 11:00 am - Adelaide Corrigan NP at [facility]04/19/2018 11:00 am - Adelaide Corrigan NP at [facility]05/05/2018 1:30 pm - Adelaide Corrigan NP at [facility]05/05/2018 1:30 pm - Biju Beach M.D. at [facility]06/09/2018 9:20 am - Josie Ordaz M.D. at [facility] - Wlzzkihlc79/12/2018 - Biju Beach M.D.K40.90 Unil inguinal hernia, w/o obst or gangr, not spcf as recurFollow up:OR
[2018-02-22 20:55] VITALS: BP 151/83
[2018-02-22] MEDS ORDERED: Ketorolac INJ* 60 MG/2 ML VIAL IM ONE (21:17)
--- NOTE | 2018-02-22 21:49 | UC ---
Beni Inman Stephanie, scribed for Isaiah Castillo MD on 02/22/18 at 2110 . Dental HPI - HPI Summary HPI Summary: The pt is a 67 y/o M presenting to with c/o R sided jaw pain that began 4 weeks ago. He was seen by dentist 12 days ago and noted to have "sensitive spot. " He reports increased pain within the past few days. The pts symptoms are aggravated by chewing and talking. He rates his pain as a 5 in severity. - History of Current Complaint Chief Complaint: UCDentalProblem Stated Complaint: JAW PAIN,WEAKNESS Time Seen by Provider: 02/22/18 20:47 Hx Obtained From: Patient Onset/Duration: Gradual Onset, Lasting Weeks - 4, Still Present Severity: Moderate Pain Intensity: 7 Pain Scale Used: 0-10 Numeric Aggravating Factor(s): Chewing, Other - talking Alleviating Factor(s): Nothing - Allergies/Home Medications Allergies/Adverse Reactions: Allergies Allergy/AdvReac Type Severity Reaction Status Date / Time Sulfa (Sulfonamide Allergy Unknown Verified 02/22/18 20:56 Antibiotics) Reaction Details sulfamethoxazole Allergy Unknown Verified 02/22/18 20:56 [From Bactrim] Reaction Details Tetracyclines Allergy Unknown Verified 02/22/18 20:56 Reaction Details trimethoprim [From Bactrim] Allergy Unknown Verified 02/22/18 20:56 Reaction Details PMH/Surg Hx/FS Hx/Imm Hx Endocrine History: Hypothyroidism, Dyslipidemia GI/ History: Other Other GI/ History: negative: renal disease - Surgical History Surgical History: Yes Surgery Procedure, Year, and Place: TONSILLECTOMY 1950. LEFT SHOULDER 2013 [place] - Family History Known Family History: Negative: Renal Disease - Social History Occupation: Retired Lives: With Family Alcohol Use: Weekly Alcohol Amount: 3-4 DRINKS Substance Use Type: None Smoking Status (MU): Never Smoked Tobacco Have You Smoked in the Last Year: No Review of Systems Constitutional: Negative Skin: Negative Eyes: Negative ENT: Dental Pain - jaw pain Respiratory: Negative Cardiovascular: Negative Gastrointestinal: Negative Genitourinary: Negative Motor: Negative Neurovascular: Negative Musculoskeletal: Negative Neurological: Negative Psychological: Negative All Other Systems Reviewed And Are Negative: Yes Physical Exam - Summary Physical Exam Summary: VITAL SIGNS: Reviewed. GENERAL: Patient is a well-developed and nourished MALE who is lying comfortable in the stretcher. Patient is not in any acute respiratory distress. HEAD AND FACE: Normocephalic, EYES: PERRLA, EOMI x 2. EARS: Hearing grossly intact. MOUTH: Oropharynx within normal limits. Point tenderness in R TMJ. NECK: Supple, trachea is midline, no adenopathy, no JVD, no carotid bruit. CHEST: Symmetric, no tenderness at palpation LUNGS: Clear to auscultation bilaterally. No wheezing or crackles. CVS: Regular rate and rhythm, S1 and S2 present, no murmurs or gallops appreciated. ABDOMEN: Soft, non-tender. Bowel sounds are normal. No abdominal abnormal pulsations. EXTREMITIES: Full ROM in all major joints, no edema, no cyanosis or clubbing. NEURO: Alert and oriented x 3. No acute neurological deficits. Speech is normal and follows commands. SKIN: Dry and warm Triage Information Reviewed: Yes Vital Signs: Initial Vital Signs Temp 99.2 F 02/22/18 20:53 Pulse 65 02/22/18 20:53 Resp 14 02/22/18 20:53 BP 151/83 02/22/18 20:53 Pulse Ox 97 02/22/18 20:53 Vital Signs Reviewed: Yes Dental Complaint Course/Dx - Course Course Of Treatment: 67-year-old male with jaw pain. Physical exam reveals that the tenderness is around the TMJ. Patient was given Toradol. Patient has an appointment with dentist in 2 days. He will follow-up with him. Patient given a prescription for naproxen. Patient has no dental cavities, no gum swelling or tenderness, and the airway is patent. - Differential Dx/Diagnosis Provider Diagnoses: TMJ Discharge - Sign-Out/Discharge Documenting (check all that apply): Discharge/Admit/Transfer - Discharge Plan Condition: Stable Disposition: HOME Prescriptions: Naproxen TAB* [Naprosyn 250 mg TAB*] 500 mg PO BID #20 tab Patient Education Materials: Temporomandibular Disorder (ED) Referrals: Josie Ordaz MD [Primary Care Provider] - - Billing Disposition and Condition Condition: STABLE Disposition: Home The documentation as recorded by the Beni morel Stephanie accurately reflects the service I personally performed and the decisions made by Jonathan merchant Walter, MD.
== END 2018-02-22 21:26 | disposition home or self-care (01) ==
LOC: UCEAST 20:26
DX: M26.609 Unspecified temporomandibular joint disorder, unspecified side (principal); E03.9 Hypothyroidism, unspecified; E78.5 Hyperlipidemia, unspecified; Z88.1 Allergy status to other antibiotic agents; Z88.2 Allergy status to sulfonamides
CPT/HCPCS: 96372; 99212; G0463; J1885